=== PATIENT | female | born 1950 | race Caucasian/White ===

== ENCOUNTER 2017-12-12 12:13 | Inpatient (IN) ==
[2017-12-12] MEDS ORDERED: Morphine Inj 4 MG/ML Vial IV.PUSH ONE ×2 (12:28→12:58)
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
[2017-12-12 14:30] LABS: Baso % (Auto) 0.2 % (0.0-2.0); Eos # (Auto) 0.1 th/mm3 (0.0-0.4); Eos % (Auto) 0.6 % (0.0-4.0); Hematocrit 40.9 % (35.0-46.0); Hemoglobin 13.5 gm/dL (11.6-15.3); Lymph # (Auto) 1.8 th/mm3 (1.0-4.8); Lymph % (Auto) 11.7 % (9.0-44.0); Mean Corpuscular HGB Conc 33.1 % (32.0-36.0); Mean Corpuscular Hemoglobin 31.2 pg (27.0-34.0); Mean Corpuscular Volume 94.1 fL (80.0-100.0); Mean Platelet Volume 10.1 fL (7.0-11.0); Mono # (Auto) 1.3 th/mm3 (0.0-0.9); Neut # (Auto) 12.5 th/mm3 (1.8-7.7); Neut % (Auto) 79.5 % (16.0-70.0); Platelet Count 204 th/mm3 (150-450); Red Blood Count 4.34 mil/mm3 (4.00-5.30); Red Cell Distribution Width 14.5 % (11.6-17.2); White Blood Count 15.7 th/mm3 (4.0-11.0)
[2017-12-12 14:56] LABS: Calcium 8.5 mg/dL (8.5-10.1); Carbon Dioxide 26.9 meq/L (21.0-32.0)
[2017-12-12 14:58] LABS: Potassium 5.1 meq/L (3.5-5.1)
[2017-12-12] MEDS ORDERED: Sod Chloride 0.9% Inj 1,000 ML IV.SIG SCH (15:15)
[2017-12-12 15:50] LABS: Activated Partial Thrombo Time 20.5 sec (24.3-30.1); INR 1.1 Ratio; Prothrombin Time 10.7 sec (9.8-11.6)
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
[2017-12-12] MEDS: Morphine Inj 4 MG/ML Vial IV.PUSH PRN (22:12)
[2017-12-13] MEDS: Morphine Inj 4 MG/ML Vial IV.PUSH PRN ×3 (00:28→06:43)
[2017-12-13] MEDS ORDERED: Ketorolac Inj 30 MG/ML (IVP) Vial IV.PUSH PRN (06:27)
[2017-12-13] MEDS: Methocarbamol 500 MG Tablet PO SCH ×3 (07:06→21:55)
[2017-12-13] MEDS: Sod Chloride 0.9% Inj 1,000 ML IV.CONT SCH ×2 (07:06→20:16)
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
[2017-12-13] MEDS ORDERED: Lidocaine 5% Patch T-DERMAL SCH (09:00)
[2017-12-13] MEDS: Budesonide-Formoterol 160/4.5 MCG 6 GM Inhaler INH SCH ×2 (09:00→22:01)
[2017-12-13] MEDS: Senna/Docusate Sodium 8.6/50 MG Tablet PO SCH ×2 (09:27→20:19)
[2017-12-13] MEDS: Ketorolac Inj 30 MG/ML (IVP) Vial IV.PUSH SCH ×2 (12:59→18:45)
[2017-12-13] MEDS ORDERED: Diatrizoate Meglum/Diatrizoate Sod Liq 9 ML UDC PO ONE (13:00)
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
--- NOTE | 2017-12-13 19:14 | ECG ---
Date Performed: 12/13/2017 Time Performed: 10:08:21 PTAGE: 67 years EKG: Sinus rhythm LBBB SINCE PRIOR TRACING THERE HAS BEEN SOME SLIGHT VARIATION IN THE NONSPECIFIC ST T-WAVE CHANGES A SSOCIATED WITH LBBB. ,BUT NO OTHER SIGNIFICANT SERIAL CHANGE. ABNORMAL ECG PREVIOUS TRACING : 05/18/2010 20.04 DOCTOR: Renetta Steen Interpretating Date/Time 12/13/2017 19:13:30
[2017-12-13] MEDS: Lidocaine 5% Patch T-DERMAL SCH (19:21)
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
[2017-12-14] MEDS: Ketorolac Inj 30 MG/ML (IVP) Vial IV.PUSH SCH ×4 (01:35→23:12)
[2017-12-14 05:56] LABS: Baso # (Auto) 0.1 th/mm3 (0.0-0.2); Baso % (Auto) 0.5 % (0.0-2.0); Eos # (Auto) 0.2 th/mm3 (0.0-0.4); Eos % (Auto) 1.3 % (0.0-4.0); Hematocrit 31.8 % (35.0-46.0); Lymph # (Auto) 1.8 th/mm3 (1.0-4.8); Lymph % (Auto) 12.3 % (9.0-44.0); Mean Corpuscular HGB Conc 34.5 % (32.0-36.0); Mean Corpuscular Hemoglobin 31.7 pg (27.0-34.0); Mean Corpuscular Volume 91.9 fL (80.0-100.0); Mean Platelet Volume 9.6 fL (7.0-11.0); Mono # (Auto) 1.4 th/mm3 (0.0-0.9); Mono % (Auto) 9.6 % (0.0-8.0); Neut # (Auto) 11.1 th/mm3 (1.8-7.7); Neut % (Auto) 76.3 % (16.0-70.0); Platelet Count 168 th/mm3 (150-450); Red Blood Count 3.46 mil/mm3 (4.00-5.30); Red Cell Distribution Width 13.5 % (11.6-17.2); White Blood Count 14.6 th/mm3 (4.0-11.0)
[2017-12-14] MEDS: Sod Chloride 0.9% Inj 1,000 ML IV.CONT SCH ×2 (06:05→19:43)
[2017-12-14] MEDS: Methocarbamol 500 MG Tablet PO SCH ×3 (06:05→23:15)
[2017-12-14 06:15] LABS: Calcium 7.7 mg/dL (8.5-10.1); Carbon Dioxide 29.4 meq/L (21.0-32.0); Potassium 3.3 meq/L (3.5-5.1)
[2017-12-14] MEDS: Senna/Docusate Sodium 8.6/50 MG Tablet PO SCH ×2 (09:58→23:16)
[2017-12-14] MEDS: Lidocaine 5% Patch T-DERMAL SCH (09:59)
[2017-12-14] MEDS: Budesonide-Formoterol 160/4.5 MCG 6 GM Inhaler INH SCH ×2 (10:00→23:07)
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
[2017-12-15] MEDS: Ketorolac Inj 30 MG/ML (IVP) Vial IV.PUSH SCH ×4 (01:13→17:59)
[2017-12-15] MEDS: Morphine Inj 4 MG/ML Vial IV.PUSH PRN ×3 (01:16→10:24)
[2017-12-15] MEDS: Methocarbamol 500 MG Tablet PO SCH ×3 (06:39→21:28)
[2017-12-15 07:42] LABS: Anion Gap 5 meq/L (5-15); Calcium 8.4 mg/dL (8.5-10.1); Carbon Dioxide 31.2 meq/L (21.0-32.0); Chloride 103 meq/L (98-107); Glomerular Filtration Rate 78 mL/min (>89); Glucose,Random 112 mg/dL (74-106); Potassium 3.5 meq/L (3.5-5.1); Sodium 139 meq/L (136-145)
[2017-12-15 07:47] LABS: Blood Urea Nitrogen 8 mg/dL (7-18); Creatine Kinase 253 U/L (26-192)
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
[2017-12-15 07:59] LABS: CKMB Percent 0.4 % (0.0-4.0); Creatine Kinase MB 1.1 ng/mL (0.5-3.6)
[2017-12-15 08:00] LABS: Hematocrit 33.3 % (35.0-46.0); Hemoglobin 11.1 gm/dL (11.6-15.3); Mean Corpuscular HGB Conc 33.2 % (32.0-36.0); Mean Corpuscular Hemoglobin 31.4 pg (27.0-34.0); Mean Corpuscular Volume 94.3 fL (80.0-100.0); Mean Platelet Volume 9.7 fL (7.0-11.0); Platelet Count 207 th/mm3 (150-450); Red Blood Count 3.53 mil/mm3 (4.00-5.30); Red Cell Distribution Width 13.8 % (11.6-17.2); White Blood Count 12.1 th/mm3 (4.0-11.0)
[2017-12-15] MEDS: Senna/Docusate Sodium 8.6/50 MG Tablet PO SCH ×2 (09:20→21:28)
[2017-12-15] MEDS: Budesonide-Formoterol 160/4.5 MCG 6 GM Inhaler INH SCH ×2 (09:21→21:30)
[2017-12-15] MEDS: Lidocaine 5% Patch T-DERMAL SCH (09:29)
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
--- NOTE | 2017-12-15 13:05 | ECG ---
Date Performed: 12/15/2017 Time Performed: 07:24:30 PTAGE: 67 years EKG: Sinus rhythm LEFT BUNDLE BRANCH BLOCK ABNORMAL ECG PREVIOUS TRACING : 12/13/2017 10.08 DOCTOR: Maren Tejada Interpretating Date/Time 12/15/2017 13:03:04
[2017-12-16] MEDS: Ketorolac Inj 30 MG/ML (IVP) Vial IV.PUSH SCH ×4 (01:15→18:09)
[2017-12-16] MEDS: Methocarbamol 500 MG Tablet PO SCH ×3 (06:20→21:13)
[2017-12-16] MEDS: Budesonide-Formoterol 160/4.5 MCG 6 GM Inhaler INH SCH ×2 (09:41→21:13)
[2017-12-16] MEDS: Senna/Docusate Sodium 8.6/50 MG Tablet PO SCH ×2 (09:42→21:13)
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
[2017-12-16] MEDS: Scopalamine 1.5 MG Patch T-DERMAL SCH (13:18)
[2017-12-16] MEDS: Lidocaine 5% Patch T-DERMAL SCH (13:24)
[2017-12-17] MEDS: Ketorolac Inj 30 MG/ML (IVP) Vial IV.PUSH SCH ×2 (01:16→06:42)
[2017-12-17 04:57] LABS: Hematocrit 34.8 % (35.0-46.0); Hemoglobin 11.6 gm/dL (11.6-15.3); Mean Corpuscular HGB Conc 33.3 % (32.0-36.0); Mean Corpuscular Hemoglobin 31.3 pg (27.0-34.0); Mean Corpuscular Volume 94.1 fL (80.0-100.0); Mean Platelet Volume 8.7 fL (7.0-11.0); Platelet Count 303 th/mm3 (150-450); Red Cell Distribution Width 13.7 % (11.6-17.2); White Blood Count 12.4 th/mm3 (4.0-11.0)
[2017-12-17] MEDS: Methocarbamol 500 MG Tablet PO SCH ×3 (05:05→21:42)
[2017-12-17 05:12] LABS: Calcium 9.2 mg/dL (8.5-10.1); Carbon Dioxide 32.8 meq/L (21.0-32.0); Potassium 3.9 meq/L (3.5-5.1)
[2017-12-17] MEDS: Senna/Docusate Sodium 8.6/50 MG Tablet PO SCH ×2 (08:17→21:43)
[2017-12-17] MEDS: Lidocaine 5% Patch T-DERMAL SCH (08:18)
[2017-12-17] MEDS: Budesonide-Formoterol 160/4.5 MCG 6 GM Inhaler INH SCH ×2 (08:19→21:45)
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
[2017-12-18] MEDS: Methocarbamol 500 MG Tablet PO SCH ×3 (05:01→22:01)
[2017-12-18] MEDS ORDERED: Magnesium Citrate Liq 300 ML Bottle PO ONE (07:37)
[2017-12-18] MEDS: Budesonide-Formoterol 160/4.5 MCG 6 GM Inhaler INH SCH ×2 (09:34→22:02)
[2017-12-18] MEDS: Enoxaparin Inj 40 MG/0.4 ML Syringe SQ SCH (09:35)
[2017-12-18] MEDS: Lidocaine 5% Patch T-DERMAL SCH (09:37)
[2017-12-18] MEDS: Senna/Docusate Sodium 8.6/50 MG Tablet PO SCH ×2 (09:38→22:01)
--- NOTE | 2017-12-18 16:37 | P.DCO ---
- Physical Therapy Order: Evaluate and treat, Improve ambulation, Strength and gait training - Case Management Consult Yes - Certification I have seen patient Jackelyn Escobar on 12/18/17. My clinical findings support the need for the requested home health care services because: Limited mobility due to disease progression, Patient has SOB I certify that my clinical findings support that this patient is homebound because: Impaired cognitive ability/safety, Hx COPD - exertion dyspnea/weakness
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
[2017-12-19] MEDS: Methocarbamol 500 MG Tablet PO SCH ×2 (05:52→13:02)
[2017-12-19 08:34] VITALS: RESP 17
[2017-12-19] MEDS: Enoxaparin Inj 40 MG/0.4 ML Syringe SQ SCH (09:01)
[2017-12-19] MEDS: Lidocaine 5% Patch T-DERMAL SCH (09:02)
[2017-12-19] MEDS: Budesonide-Formoterol 160/4.5 MCG 6 GM Inhaler INH SCH (09:02)
[2017-12-19] MEDS: Senna/Docusate Sodium 8.6/50 MG Tablet PO SCH (09:02)
--- NOTE | 2017-12-19 09:33 | P.DCO ---
- Physical Therapy Order: Evaluate and treat, Improve ambulation, Strength and gait training - Home Health Nursing Order: Nursing assessment with vital signs - Case Management Consult Yes - Certification I have seen patient Jackelyn Escobar on 12/19/17. My clinical findings support the need for the requested home health care services because: Patient has SOB, Deconditioned with increased weakness I certify that my clinical findings support that this patient is homebound because: Impaired cognitive ability/safety, Hx COPD - exertion dyspnea/weakness
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
[2017-12-19] MEDS: Scopalamine 1.5 MG Patch T-DERMAL SCH (12:54)
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
[2017-12-19 17:05] VITALS: BP 130/62; TEMP 98; O2SAT 93
[2017-12-19 18:11] VITALS: PULSE 93
== END 2017-12-19 19:18 | disposition home health service (06) ==
LOC: NEPE 12:13 → NEDA 17:52 → N04 19:12 → NEDA 19:15 → N05 12-13 11:36
PROVIDERS: ADMIT Surgery; ATTEND Surgery